=== PATIENT | male | born 1985 | race Hispanic/Latino ===

== ENCOUNTER 2021-06-10 18:35 | Emergency (ER) | payer OTHER, SELFPAY ==
--- NOTE | ~2021-06-10 | XR_ITS ---
XR chest 1V portable DATE: 06/10/2021 19:14 INDICATION: Shortness of breath, fever, cough. Covid-positive. TECHNIQUE: Portable AP chest on 06/10/2021 at 1907 hours COMPARISON: 02/21/2015 PA and lateral chest FINDINGS: Normal heart size. There are patchy infiltrates involving primarily the mid and lower lung zones suggesting multifocal b ilateral pneumonia, without evidence of pleural effusion, suspicious for Covid pneumonia. No pneumothorax. IMPRESSION: Patchy multifocal bilateral infiltrates suggesting Covid pneumonia Reviewed, dictated and finalized at location [facility].
--- NOTE | ~2021-06-10 | CT_ITS ---
EXAMINATION: CTA chest PE protocol DATE: 06/10/2021 21:48 INDICATION: Shortness of breath for 4 days. Fever. Elevated d-dimer. TECHNIQUE: Computed tomography angiography (CTA) of the chest was performed with 100 mL Omnipaque-350 intravenous contrast timed to evaluate the pulmonary arteries. Coronal maximum intensity projection 3D-reconstructions were created by the technologist. Automated exposure control and iterative reconst ruction technique were employed. Exam dose: 755.80 mGy-cm total exam DLP. COMPARISON: 06/10/2021 portable AP chest FINDINGS: There are diffuse patchy groundglass infiltrates scattered throughout both lungs, involving all lobes, most prominent in the lower lobes. No pleural effusions. The appearance is most consisten t with Covid pneumonia. There is diagnostic contrast enhancement of the pulmonary arteries and no evidence of pulmonary embol ism. There is mild bilateral hilar and mediastinal lymphadenopathy which is likely reactive. Normal heart size. No pericardial or pleural effusion. No thoracic aortic aneurysm or dissection. Small sliding hiatal hernia. Status post cholecystectomy. Normal adrenal glands. IMPRESSION: Multifocal bilateral patchy groundglass infiltrates consistent with Covid pneumonia No evidence of pulmonary embolism Reviewed, dictated and finalized at [facility]. Reviewed, dictated and finalized at location [facility]. IMPRESSION: Multifocal bilateral patchy groundglass infiltrates consistent wit h Covid pneumonia No evidence of pulmonary embolism
[2021-06-10 18:50] VITALS: BP 130/87; PULSE 88; RESP 32; TEMP 37.7; O2SAT 95
[2021-06-10 19:01] VITALS: BP 125/83; PULSE 85; RESP 19; O2SAT 95
[2021-06-10 19:13] LABS: Basophils Percent Auto 0.2 % (0.2-1.2); Hematocrit 44.8 % (42.0-52.0); Hemoglobin 14.6 g/dL (14.0-18.0); Immature Granulocyte Absolute 0.07 K/mm3 (0.00-0.031); Immature Granulocyte Percent A 0.6 % (0-0.5); Lymphocytes Absolute Auto 0.81 K/mm3 (0.9-3.2); Lymphocytes Percent Auto 6.6 % (18.3-44.2); Mean Corpuscular HGB Conc 32.6 g/dl (32-36); Mean Corpuscular Hemoglobin 28.2 pg (26-34); Mean Corpuscular Volume 86.5 fl (80-100); Mean Platelet Volume 10.3 fl (7.4-10.4); Monocytes Absolute Auto 0.4 K/mm3 (0.1-0.6); Monocytes Percent Auto 3.5 % (2.6-8.5); Neutrophils Percent Auto 89.1 % (45.5-73.1); Platelet Count Result 260 k/mm3 (150-375); Red Blood Count 5.18 M/mm3 (4.6-6.20); Red Cell Distribution Width 13.6 % (11.5-14.5); White Blood Count 12.3 K/mm3 (4.5-10.0)
[2021-06-10 19:23] LABS: Anion Gap 7 mmol/L (8-16); Blood Urea Nitrogen 18 mg/dL (9-20); Calcium 8.7 mg/dL (8.4-10.2); Carbon Dioxide 28 mmol/L (22-30); Chloride 101 mmol/L (98-107); Estimated CRCL calculation 107 ml/min; Estimated Glomerular Filt Rate > 60; Glucose 132 mg/dL (65-110); Potassium 3.2 mmol/L (3.4-5.0); Sodium 136 mmol/L (137-145)
[2021-06-10 19:31] VITALS: BP 128/79; PULSE 83; RESP 35; O2SAT 93
[2021-06-10] MEDS: SODIUM CHLORIDE 0.9% IV 1,000 ML 999 ML IV CONT (20:04)
[2021-06-10 20:34] VITALS: BP 124/69; PULSE 78; RESP 26; O2SAT 96
[2021-06-10 22:22] VITALS: BP 121/76; PULSE 75; RESP 26; O2SAT 93
--- NOTE | 2021-06-10 23:11 | ED.GENADULT ---
HPI - General Adult General Chief complaint: Upper Respiratory Infection Stated complaint: Difficulty Breathing,Covid+ Time Seen by Provider: 06/10/21 19:10 History of Present Illness HPI narrative: Patient is a 36-year-old male who presents ER with shortness of breath and fatigue. Patient diagnosed with COVID-19 8 days ago. Has felt decline over the last couple of days. Reports when he walks he is extremely fatigued and gets lightheaded. He has coughing fits that makes him short of breath as well. Patient did not receive Covid vaccination. Patient also reports some central chest pain that occurs when he is coughing. No lower extremity swelling. No hemoptysis. Related Data Allergies Allergy/AdvReac Type Severity Reaction Status Date / Time No Known Allergies Allergy Verified 06/10/21 19:47 Review of Systems Review of Systems: All systems reviewed & are unremarkable except as noted in HPI and below Constitutional: Constitutional: Reports chills, Reports fatigue, Reports fever(s) and Reports weakness ENT: Reports nasal congestion and Reports sore throat Cardiovascular: Cardiovascular: Reports chest pain, Denies rapid heart rate and Denies radiating jaw, neck or arm pain Respiratory: Respiratory: Reports cough, Reports dyspnea and Denies wheezing Gastrointestinal: Gastrointestinal: Denies abdominal pain, Denies nausea and Denies vomiting Musculoskeletal: Musculoskeletal: Reports myalgias PMFSH Past Medical History Medical History (Updated 06/10/21 @ 23:15 by Nestor Alfaro MD) Healthy adult male Surgical History Surgical History (Updated 06/10/21 @ 23:13 by Nestor Alfaro MD) No history of previous surgery Social History Social History (Updated 06/10/21 @ 23:13 by Nestor Alfaro MD) Smoking status: Never smoker Exam Narrative: GENERAL: Fatigue-appearing, well-nourished, and in no acute distress. HEAD: Normocephalic, atraumatic. EYES: PERRL and EOMI. NECK: Supple. CHEST: Clear to auscultation. No respiratory distress. HEART: Regular rate and rhythm. Normal peripheral pulses. ABDOMEN: Soft, nontender, nondistended. EXTREMITIES: Normal range of motion. No edema. SKIN: Warm, dry, no rash. NEURO: Alert and oriented x3. Course Course Emergency Course: Patient ambulated in the room without hypoxia. Supportive treatments given including fluids. Discharge home with albuterol. Vital Signs Vital signs: Vital Signs Temperature 100 F H 06/10/21 18:50 Pulse Rate 88 06/10/21 18:50 Respiratory Rate 32 H 06/10/21 18:50 Blood Pressure 130/87 06/10/21 18:50 Pulse Oximetry 95 06/10/21 18:50 Temperature 100 F H 06/10/21 18:50 Pulse Rate 75 06/10/21 22:22 Respiratory Rate 26 H 06/10/21 22:22 Blood Pressure 121/76 06/10/21 22:22 Pulse Oximetry 93 06/10/21 22:22 Medical Decision Making Vital Signs Vital Signs: Vital Signs Temperature 100 F H 06/10/21 18:50 Pulse Rate 88 06/10/21 18:50 Respiratory Rate 32 H 06/10/21 18:50 Blood Pressure 130/87 06/10/21 18:50 Pulse Oximetry 95 06/10/21 18:50 Temperature 100 F H 06/10/21 18:50 Pulse Rate 75 06/10/21 22:22 Respiratory Rate 26 H 06/10/21 22:22 Blood Pressure 121/76 06/10/21 22:22 Pulse Oximetry 93 06/10/21 22:22 Lab Data Result diagrams: 06/10/21 19:05 06/10/21 19:05 Labs: Lab Results 06/10/21 06/10/21 06/10/21 Range/Units 19:05 19:05 19:05 WBC 12.3 H (4.5-10.0) K/mm3 RBC 5.18 (4.6-6.20) M/mm3 Hgb 14.6 (14.0-18.0) g/dL Hct 44.8 (42.0-52.0) % MCV 86.5 (80-100) fl MCH 28.2 (26-34) pg MCHC 32.6 (32-36) g/dl RDW 13.6 (11.5-14.5) % Plt Count 260 (150-375) k/mm3 MPV 10.3 (7.4-10.4) fl Immature Gran % (Auto) 0.6 H (0-0.5) % Neut % (Auto) 89.1 H (45.5-73.1) % Lymph % (Auto) 6.6 L (18.3-44.2) % [place] % (Auto) 3.5 (2.6-8.5) % Eos % (Auto) 0.0 (0-4.4) % Baso % (Auto)
[2021-06-10 23:32] VITALS: BP 122/67; PULSE 80; RESP 27; O2SAT 93
== END 2021-06-10 23:34 | disposition home or self-care (01) ==
PROVIDERS: Emergency Medicine; Emergency Provider Emergency Medicine
DX: U07.1 COVID-19 (principal); J12.82 Pneumonia due to coronavirus disease 2019
CPT/HCPCS: 36415; 71045; 71275; 80048; 85025; 85380; 96361; 96365; 99284; J0131; J7030; Q9967

== ENCOUNTER 2024-03-17 16:57 | Emergency (ER) | payer OTHER, SELFPAY ==
--- NOTE | ~2024-03-17 | XR_ITS ---
EXAMINATION: XR knee LT 3V DATE: 03/17/2024 17:32 INDICATION: Left knee pain TECHNIQUE: Anteroposterior, oblique and crosstable lateral views of the left knee were obtained COMPARISON: None. FINDINGS: Alignment is normal. No fracture. Joint spaces are normal. Small enthesophytes at the proximal dista l insertion of the patellar tendon. No joint effusion/layering lipohemarthrosis. Soft tissues are unr emarkable. IMPRESSION: 1. Small proximal distal patellar enthesophytes. Otherwise unremarkable left knee radiographs. Reviewed, dictated and finalized at location A. IMPRESSION: 1. Small proximal distal patellar enthesophytes. Otherwise unremarkable left kn ee radiographs.
[2024-03-17 17:02] VITALS: BP 147/77; PULSE 76; RESP 20; TEMP 35.9; O2SAT 96
--- NOTE | 2024-03-17 17:56 | PC.NURSE ---
first call from waiting room, no answer
--- NOTE | 2024-03-17 18:50 | ED.LOWEXIN ---
HPI - Extremity Injury (Lower) General Chief Complaint: Extremity Injury, Lower Stated Complaint: left knee Time Seen by Provider: 03/17/24 18:21 Source: patient Mode of arrival: ambulatory Limitations: no limitations History of Present Illness HPI Narrative: This is a 39 year old male that presents to the ER for left knee pain. Ongoing over the last couple of weeks. No known injury or trauma. Pain is worse with weight bearing and relieved with rest. He has not taken any medication for pain. Denies decreased ROM or numbness. Related Data Allergies Allergy/AdvReac Type Severity Reaction Status Date / Time No Known Allergies Allergy Verified 03/17/24 17:00 Review of Systems Review of Systems: CONSTITUTIONAL: Denies fever MUSCULOSKELETAL: Reports joint pain, and myalgia. NEUROLOGIC: Denies numbness All systems reviewed & are unremarkable except as noted in HPI and below PMFSH Past Medical History Medical History (Updated 03/17/24 @ 18:56 by Helen Roy PA-C) Healthy adult male Surgical History Surgical History (Updated 06/10/21 @ 23:13 by Nestor Alfaro MD) No history of previous surgery Social History Social History (Updated 06/10/21 @ 23:13 by Nestor Alfaro MD) Smoking status: Never smoker Exam Narrative: GENERAL: Well-appearing, well-nourished, and in no acute distress. HEAD: Normocephalic, atraumatic. EYES: EOMI. EXTREMITIES: Normal range of motion. No edema, erythema or warmth. Normal DP pulse. Normal sensation SKIN: Warm, dry, no rash. NEURO: No focal deficits. Alert and oriented x3. PSYCH: Normal mood and affect Course Course Emergency Course: Patient updated on his workup and agrees with plan of care Vital Signs Vital signs: Vital Signs Temperature 96.7 F L 03/17/24 17:02 Pulse Rate 76 03/17/24 17:02 Respiratory Rate 20 03/17/24 17:02 Blood Pressure 147/77 H 03/17/24 17:02 Pulse Oximetry 96 03/17/24 17:02 Oxygen Delivery Room Air 03/17/24 17:02 Temperature 96.7 F L 03/17/24 17:02 Pulse Rate 76 03/17/24 17:02 Respiratory Rate 20 03/17/24 17:02 Blood Pressure 147/77 H 03/17/24 17:02 Pulse Oximetry 96 03/17/24 17:02 Oxygen Delivery Room Air 03/17/24 17:02 MDM - Extremity Injury (Lower) MDM Narrative Medical decision making narrative: Patient presents the emergency department for left knee pain ongoing over the last couple of weeks. No known injury or trauma. Patient is neurovascularly intact. Left knee x-ray without acute osseous abnormalities. Patient placed in an [place] wrap for comfort. Instructed to take Tylenol or ibuprofen as needed for pain. Will be given follow-up with Orthopedics. He was given warnings to return to the ER Differential Diagnosis Differential diagnosis: Likely acute internal derangement of knee and other (muscle strain) Imaging Data Radiologist's impression: ITS Impressions Knee X-Ray 03/17/24 17:38 IMPRESSION: 1. Small proximal distal patellar enthesophytes. Otherwise unremarkable left knee radiographs. Critical Care Time Critical Care Time Critical Care Time: No Discharge Plan Discharge Clinical Impression: Acute pain of left knee Patient Disposition: Home, Self-Care Condition: Stable Instructions: Knee Pain (ED) Additional Instructions: Return to the ER if you experience weakness, numbness, redness and swelling of your leg, or any other symptoms that are concerning to you Rest, use ice, take anti-inflammatories (Aleve, Ibuprofen, Naproxen, etc) or Tylenol as needed for pain Follow up with Orthopedics Prescriptions: No Action albuterol sulfate 90 mcg/actuation HFA aerosol inhaler 4 puff INHALATION QID PRN (Reason: shortness of breath or wheezing) Qty: 8 0RF Follow-up/Referrals: Bhupinder Damon MD [Physician] - UNKNOWN,DOCTOR [Primary Care Provider] -
[2024-03-17] MEDS: KETOROLAC 30 MG/ML VIAL (*BKC) IM (18:59)
== END 2024-03-17 19:10 | disposition home or self-care (01) ==
PROVIDERS: Emergency Provider Physician Assistant
DX: M25.562 Pain in left knee (principal)
CPT/HCPCS: 73562; 96372; 99283; J1885